=== PATIENT | female | born 1985 | race Caucasian/White ===

== ENCOUNTER 2016-07-27 15:01 | Emergency (ER) | payer OTHER ==
[2016-07-27 15:36] VITALS: BP 132/48
--- NOTE | 2016-07-27 15:58 | UC ---
Lower Extremity/Ankle HPI - HPI Summary HPI Summary: 31 y/o female c/o left dorsal swelling and pain which radiates into the plantar surface (arch) of the foot, which began 7-10 days ago. Patient states that her foot was suddenly very painful, she felt that she could no longer wear her left shoe (related to pain), when she took her shoe off, she noticed swelling on the dorsal surface around the first-third metatarsals. Pain is a constant 6/10 throbbing sensation. Increased when weight bearing, palpating the area, or dorsal flexion of the left foot. Pain radiates into the arch of the foot when weight bearing or walking. Elevation and ice slightly improve the pain. Denies temperature changes in the extremity, trauma, or past injury in that area of the foot. Pt also complaining of a "bone spur" around the first distal metatarsal area. Patient believes this developed a month ago, denies changes in activity of foot wear. 500 mg of Tylenol Q4H does not alleviate the pain. - History of Current Complaint Chief Complaint: UCLowerExtremity Stated Complaint: FOOT PAIN Time Seen by Provider: 07/27/16 15:43 Hx Obtained From: Patient Hx Last Menstrual Period: 07/25/16 ?: No Onset/Duration: Gradual Onset Severity Initially: Moderate Severity Currently: Moderate Pain Intensity: 6 - Becomes severe with palpation or movement Pain Scale Used: 0-10 Numeric Aggravating Factor(s): Standing, Ambulation Alleviating Factor(s): Rest, Ice Able to Bear Weight: Yes - Risk Factors Gout Risk Factors: Obesity DVT Risk Factors: Negative Septic Arthritis Risk Factor: Negative - Allergies/Home Medications Allergies/Adverse Reactions: Allergies Allergy/AdvReac Type Severity Reaction Status Date / Time Codeine Allergy Hives Verified 07/27/16 15:36 Penicillins Allergy Hives Verified 07/27/16 15:36 PMH/Surg Hx/FS Hx/Imm Hx Previously Healthy: Yes - HX of migraines Endocrine History Of: Denies: Diabetes, Thyroid Disease, Hyperthyroidism, Hypothyroidism, Dyslipidemia Cardiovascular History Of: Reports: Hypertension - Patient states that she takes beta patricia related to migraine prophylaxis Respiratory History Of: Denies: COPD, Asthma, Bronchitis, Pneumonia, Pulmonary Embolism GI/ History Of: Denies: Gastroesophageal Reflux, Ulcer, Gastrointestinal Bleed, Gall Bladder Disease, Kidney Stones, Diverticulitis, Renal Disease, Urosepsis Neurological History Of: Denies: TIA, CVA, Dementia, Seizures, Migraine Psychological History Of: Reports: Anxiety - Surgical History Surgical History: Yes Surgery Procedure, Year, and Place: R and L hip WITH HARDWEAR. c- section - Family History Known Family History: Positive: None, Hypertension, Other - No known FMH of skin disorder Mother 43 r/t brain aneurysm - Social History Lives: With Family Alcohol Use: None Substance Use Type: None Smoking Status (MU): Never Smoked Tobacco Have You Smoked in the Last Year: No - Immunization History Hx Tetanus, Diphtheria Vaccination: No Review of Systems Constitutional: Negative Skin: Other - Swelling left foot Eyes: Negative ENT: Negative Respiratory: Negative Cardiovascular: Negative Gastrointestinal: Negative Genitourinary: Negative Motor: Negative Neurovascular: Negative Musculoskeletal: Negative Neurological: Negative Psychological: Negative All Other Systems Reviewed And Are Negative: Yes Physical Exam Triage Information Reviewed: Yes Appearance: Well-Appearing, No Pain Distress, Obese Vital Signs: Initial Vital Signs Temp 98.2 F 07/27/16 15:32 Pulse 80 07/27/16 15:32 Resp 18 07/27/16 15:32 BP 132/48 07/27/16 15:32 Pulse Ox 99 07/27/16 15:32 Vital Signs Reviewed: Yes Eye Exam: Normal Eyes: Positive: Conjunctiva Clear ENT Exam: Normal ENT: Positive: Normal ENT inspection, Hearing grossly normal, Pharynx normal, TMs normal Dental Exam: Normal Dental: Negative: Cervical Lymphadenopathy Neck exam: Normal Neck: Positive: Supple, Nontender, No Lymphadenopathy Respiratory: Positive: Chest non-tender, Lungs clear, Normal breath sounds, No respiratory distress Cardiovascular: Positive: RRR, No Murmur, Pulses Normal Abdomen Description: Positive: Nontender, No Organomegaly, Soft Musculoskeletal Exam: Normal Musculoskeletal: Positive: Strength Intact, ROM Intact Neurological Exam: Normal Neurological: Positive: Alert Psychological Exam: Normal Skin: Positive: Other Lower Extremity Course/Dx - Differential Dx/Diagnosis Provider Diagnoses: Bunion proximal metatarsal joint. Foot pain Discharge - Discharge Plan Condition: Stable Disposition: HOME Patient Education Materials: Sai (ED) Referrals: Cosme ARANA,Mark Crockett [Doctor of Podiatric Medicine] - Additional Instructions: Shoe modification: wide, low-heeled shoes, or specially altered shoes Orthotic inserts to improve support and alignment Night splinting to improve toe alignment Stretching and/or mobilization/manipulation to maintain joint mobility Bunion pads to prevent irritation Ice applied after activity to reduce inflammation Analgesics: Ibuprofen or Tylenol Elevate the foot Follow up with podiatry
--- NOTE | 2016-07-27 16:45 | RAD ---
Indication: Left foot pain 3 views of left foot demonstrates no fracture. Mild hallux valgus deformity is noted at the first metatarsal phalangeal joint. No significant displacement is noted. IMPRESSION: Mild hallux valgus deformity of the first metatarsal phalangeal joint.
== END 2016-07-27 17:03 | disposition home or self-care (01) ==
LOC: UCCORT 15:01
DX: M21.612 Bunion of left foot (principal); E66.9 Obesity, unspecified; Z88.0 Allergy status to penicillin; Z88.5 Allergy status to narcotic agent
CPT/HCPCS: 99211; G0463

== ENCOUNTER 2016-09-06 11:54 | Emergency (ER) | payer OTHER ==
[2016-09-06 13:55] VITALS: BP 148/67
--- NOTE | 2016-09-06 14:23 | UC ---
Ear Complaint HPI - HPI Summary HPI Summary: 31 female presents with complaints of left ear pain that began 3-4 days ago. States the pain earlier in the week was in her right ear however after ibuprofen that improved. The pain then began in her left ear, waking her up in the middle of the night. She tried ibuprofen and tylenol. Last dose of Tylenol was around 11am this morning. Did not have any relief. Denies discharge, nasal congestion, cough, headache and fever/chills. - History of Current Complaint Chief Complaint: UCEar Stated Complaint: EAR PAIN Time Seen by Provider: 09/06/16 13:54 Hx Obtained From: Patient Hx Last Menstrual Period: 08/26/16 ?: No Onset/Duration: Sudden Onset Severity Initially: Mild Severity Currently: None Pain Intensity: 3 Pain Scale Used: 0-10 Numeric Aggravating Factors: Nothing Alleviating Factors: Nothing Associated Signs/Symptoms: Negative: Discharge, Hearing Loss, Foreign Body Sensation, Trauma to Ear, Swelling @, URI Symptoms - Allergies/Home Medications Allergies/Adverse Reactions: Allergies Allergy/AdvReac Type Severity Reaction Status Date / Time Codeine Allergy Hives Verified 09/06/16 13:50 Penicillins Allergy Hives Verified 09/06/16 13:50 PMH/Surg Hx/FS Hx/Imm Hx Endocrine History Of: Denies: Diabetes, Thyroid Disease, Hyperthyroidism, Hypothyroidism, Dyslipidemia Cardiovascular History Of: Denies: Hypertension, Pacemaker/ICD Respiratory History Of: Denies: COPD, Asthma, Bronchitis, Pneumonia, Pulmonary Embolism GI/ History Of: Denies: Gastroesophageal Reflux, Ulcer, Gastrointestinal Bleed, Gall Bladder Disease, Kidney Stones, Diverticulitis, Renal Disease, Urosepsis Neurological History Of: Denies: TIA, CVA, Dementia, Seizures, Migraine Psychological History Of: Reports: Anxiety - Surgical History Surgical History: Yes Surgery Procedure, Year, and Place: R and L hip WITH HARDWEAR. c- section - Family History Known Family History: Positive: None, Hypertension, Other - No known FMH of skin disorder Mother 43 r/t brain aneurysm - Social History Alcohol Use: None Substance Use Type: None Smoking Status (MU): Never Smoked Tobacco Have You Smoked in the Last Year: No - Immunization History Hx Tetanus, Diphtheria Vaccination: No Review of Systems Constitutional: Negative Skin: Negative Eyes: Negative ENT: Ear Ache Respiratory: Negative Cardiovascular: Negative Gastrointestinal: Negative Motor: Negative Neurovascular: Negative Musculoskeletal: Negative Neurological: Negative Psychological: Negative All Other Systems Reviewed And Are Negative: Yes Physical Exam Triage Information Reviewed: Yes Appearance: Well-Appearing, No Pain Distress, Well-Nourished Vital Signs: Initial Vital Signs Temp 98.1 F 09/06/16 13:51 Pulse 83 09/06/16 13:51 Resp 16 09/06/16 13:51 BP 148/67 09/06/16 13:51 Pulse Ox 98 09/06/16 13:51 Vital Signs Reviewed: Yes Eye Exam: Normal Eyes: Positive: Conjunctiva Clear ENT: Positive: Normal ENT inspection, Hearing grossly normal, Pharynx normal, TM bulging - left, TM red - no discharge, FB or cerumen noted in EAC Dental: Negative: Percussion Tenderness @, Cervical Lymphadenopathy Neck: Positive: Supple, Nontender, No Lymphadenopathy Respiratory: Positive: Chest non-tender, Lungs clear, Normal breath sounds, No respiratory distress, No accessory muscle use Cardiovascular: Positive: RRR, No Murmur, Pulses Normal, Brisk Capillary Refill Abdominal Exam: Normal Musculoskeletal Exam: Normal Neurological Exam: Normal Psychological Exam: Normal Psychological: Positive: Normal Response To Family, Age Appropriate Behavior Skin Exam: Normal Ear Complaint Course/Dx - Course Course Of Treatment: gievn antibiotic for mild otitis media of left ear, continue tylenol/ibuprofen. aware of worsening signs and symptoms to watch out for. - Differential Dx/Diagnosis Differential Diagnosis/HQI/PQRI: Otitis Externa, Otitis Media, URI Provider Diagnoses: otitis media, left Discharge - Discharge Plan Condition: Stable Disposition: HOME Prescriptions: Amoxicillin CAP* [Amoxicillin 500 MG CAP*] 500 mg PO Q12H #20 cap Patient Education Materials: Otitis Media (ED) Referrals: No Primary Care Phys,NOPCP [Primary Care Provider] - [facility] [place]] Additional Instructions: Take prescribed antibiotics until entire dose is finished, even if symptoms improve. Recommend taking probiotic pills in between antibiotic doses to replenish normal gage. Drink plenty of fluids and wash hands frequently. Continue using ibuprofen/tylenol for pain and fever. Do not submerge ear under water. If symptoms worsen or do not improve, or new symptoms develop please seek medical attention.
== END 2016-09-06 14:33 | disposition home or self-care (01) ==
LOC: UCCORT 11:54
DX: H66.92 Otitis media, unspecified, left ear (principal); F41.9 Anxiety disorder, unspecified; Z88.5 Allergy status to narcotic agent; Z88.0 Allergy status to penicillin
CPT/HCPCS: 99212; G0463

== ENCOUNTER 2016-10-10 21:36 | Emergency (ER) | payer OTHER ==
[2016-10-10 21:55] VITALS: BP 147/93
[2016-10-10] MEDS ORDERED: Amoxicillin/Clavulanate TAB* 875 MG PO ONE (22:44)
[2016-10-10] MEDS ORDERED: HYDROcodone/ACETAMIN 5-325 MG* 1 TAB PO ONE (22:47)
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
== END 2016-10-10 23:02 | disposition home or self-care (01) ==
LOC: UCCORT 21:36
DX: K04.7 Periapical abscess without sinus (principal); F41.9 Anxiety disorder, unspecified; E66.9 Obesity, unspecified; Z88.5 Allergy status to narcotic agent; Z88.0 Allergy status to penicillin
CPT/HCPCS: 99212; A9270-GY; G0463

== ENCOUNTER 2017-03-09 16:28 | Emergency (ER) | payer OTHER ==
[2017-03-09 16:48] VITALS: BP 143/83
--- NOTE | 2017-03-09 16:50 | UC ---
Lower Extremity/Ankle HPI - HPI Summary HPI Summary: 32 YEAR OLD FEMALE PRESENTS WITH RIGHT BIG TOE INGROWN NAIL. - History of Current Complaint Chief Complaint: UCLowerExtremity Stated Complaint: INGROWN TOENAIL Time Seen by Provider: 03/09/17 16:48 Hx Obtained From: Patient Hx Last Menstrual Period: 03/05/17 Onset/Duration: Sudden Onset Severity Initially: Moderate Severity Currently: Moderate Pain Scale Used: 0-10 Numeric - 7 Aggravating Factor(s): Standing, Ambulation Alleviating Factor(s): Rest, Elevation - Allergies/Home Medications Allergies/Adverse Reactions: Allergies Allergy/AdvReac Type Severity Reaction Status Date / Time No Known Allergies Allergy Verified 03/09/17 16:48 Home Medications: Home Medications ALPRAZolam TAB* [Xanax TAB*] 0.25 mg PO Q8H PRN 03/09/17 [History Confirmed 08/21] buPROPion TAB* [Wellbutrin TAB*] 150 mg PO DAILY 03/09/17 [History Confirmed 08/21] PMH/Surg Hx/FS Hx/Imm Hx Previously Healthy: Yes - Surgical History Surgical History: Yes Surgery Procedure, Year, and Place: R and L hip WITH HARDWEAR. c- section - Family History Known Family History: Positive: None, Hypertension, Other - No known FMH of skin disorder Mother 43 r/t brain aneurysm - Social History Alcohol Use: Occasionally Substance Use Type: None Smoking Status (MU): Never Smoked Tobacco Have You Smoked in the Last Year: No - Immunization History Most Recent Influenza Vaccination: no 2016 Hx Tetanus, Diphtheria Vaccination: No Review of Systems Constitutional: Negative Skin: Other - RIGHT BIG TOE INGROWN NAIL Eyes: Negative ENT: Negative Respiratory: Negative Cardiovascular: Negative Gastrointestinal: Negative Genitourinary: Negative Motor: Negative Neurovascular: Negative Musculoskeletal: Negative Neurological: Negative Psychological: Negative All Other Systems Reviewed And Are Negative: Yes Physical Exam Triage Information Reviewed: Yes Vital Signs: Initial Vital Signs Temp 36.6 C 03/09/17 16:44 Pulse 102 03/09/17 16:44 Resp 20 03/09/17 16:44 BP 143/83 03/09/17 16:44 Pulse Ox 100 03/09/17 16:44 Eye Exam: Normal ENT Exam: Normal Dental Exam: Normal Neck exam: Normal Neck: Positive: 1 Respiratory Exam: Normal Cardiovascular Exam: Normal Abdominal Exam: Normal Musculoskeletal Exam: Normal Neurological Exam: Normal Psychological Exam: Normal Skin: Positive: Other - RIGHT BIG TOE INGROWN NAIL Procedures - Procedure Summary Procedure Summary: RIGHT INGROWN NAIL REMOVAL - RIGHT BIG TOE MEDIAL PARTIAL NAIL AVULSION, LIDOCAINE 1% 4 ML BLOCK, STERILE DRESSING, ABX, STERILE TECHNIQUE , AND NO COMPLICATIONS. Lower Extremity Course/Dx - Differential Dx/Diagnosis Provider Diagnoses: RIGHT BIG TOE INGROWN NAIL Discharge - Discharge Plan Condition: Stable Disposition: HOME Prescriptions: DOXYcycline CAP(*) [DOXYcycline 100MG CAP(*)] 100 mg PO BID #14 cap Patient Education Materials: Ingrown Nail (ED) Referrals: No Primary Care Phys,NOPCP [Medical Doctor] -
[2017-03-09] MEDS ORDERED: Lidocaine 1% MPF* 2 ML VIAL INJ ONE ×2 (16:58)
--- NOTE | 2017-03-09 21:41 | UC ---
Progress - Progress Note Progress Note: no change. patient on doxycycline.
--- NOTE | 2017-03-12 07:36 | UC ---
Progress - Progress Note Progress Note: no change. patient on doxycycline.
== END 2017-03-09 17:42 | disposition home or self-care (01) ==
LOC: UCCORT 16:28
DX: L60.0 Ingrowing nail (principal); B95.61 Methicillin susceptible Staphylococcus aureus infection as the cause of diseases classified elsewhere
CPT/HCPCS: 11730; 87070; 87077; 87186; 87205; 87640; 87641; 99212; G0463

== ENCOUNTER 2017-03-11 15:56 | Emergency (ER) | payer OTHER ==
[2017-03-11 16:54] VITALS: BP 133/73
--- NOTE | 2017-03-11 17:08 | UC ---
Skin Complaint HPI - HPI Summary HPI Summary: 32 year old female. Having toe pain . seen here 03/09/17 for ingrown right toenail, had partial nail removed, on Doxycycline bid, post op shoe --pt reports no improvement, very painful still and with some discharge still. no fever. She was advised to f/u here today for re-eval [ End ] - History of Current Complaint Chief Complaint: UCSkin Time Seen by Provider: 03/11/17 16:23 Stated Complaint: INFECTED INGROWN TOE NAIL Hx Obtained From: Patient Hx Last Menstrual Period: 03/05/17 Onset/Duration: Gradual Onset Onset Severity: Moderate Aggravating Factor(s): Nothing Alleviating Factor(s): Nothing Associated Signs & Symptoms: Positive: Negative - Allergy/Home Medications Allergies/Adverse Reactions: Allergies Allergy/AdvReac Type Severity Reaction Status Date / Time No Known Allergies Allergy Verified 03/11/17 16:54 Home Medications: Home Medications Acetaminophen [Acetaminophen Extra Stren] 1,000 mg PO ONCE 03/11/17 [History Confirmed 03/11/17] Review of Systems Skin: Other - toe redness All Other Systems Reviewed And Are Negative: Yes PMH/Surg Hx/FS Hx/Imm Hx Previously Healthy: Yes - Surgical History Surgical History: Yes Surgery Procedure, Year, and Place: R and L hip WITH HARDWEAR. c- section - Family History Known Family History: Positive: None, Hypertension, Other - No known FMH of skin disorder Mother 43 r/t brain aneurysm - Social History Lives: With Family Alcohol Use: Occasionally Substance Use Type: None Smoking Status (MU): Never Smoked Tobacco Have You Smoked in the Last Year: No - Immunization History Most Recent Influenza Vaccination: none Hx Tetanus, Diphtheria Vaccination: No Physical Exam Triage Information Reviewed: Yes Appearance: Well-Appearing, Pain Distress - mild Vital Signs: Initial Vital Signs Temp 98.8 F 03/11/17 16:49 Pulse 112 03/11/17 16:49 Resp 18 03/11/17 16:49 BP 133/73 03/11/17 16:49 Pulse Ox 99 03/11/17 16:49 Vital Signs Reviewed: Yes Respiratory Exam: Normal Cardiovascular Exam: Normal Musculoskeletal Exam: Normal Neurological Exam: Normal Psychological Exam: Normal Skin: Positive: Other - large toe left with medial 1st MTP with partially removed nail, some mild erythema at the base of the toe. FROM of the toe. No streaking. No pulpitis. Brisk peripheral pulses. Course/Dx - Course Course Of Treatment: Doxy sensitive. start indocin for pain relief. no other NSAIDs. no changes otherwise. discussed SE of NSAIDs - Diagnoses Provider Diagnoses: Ingrown toe nail infection Discharge - Discharge Plan Condition: Good Disposition: HOME Prescriptions: Indomethacin CAP* [Indocin CAP*] 50 mg PO TID PRN #30 cap PRN Reason: Pain Patient Education Materials: Ingrown Nail (ED) Referrals: TIFFANY Bloom [Primary Care Provider] - 4 Days Additional Instructions: Your antibiotic needs to be finished. You may take the indomethacin as needed for pain. You may also use tylenol as well. Please do not use motrin or Aleve or Excedrin .
== END 2017-03-11 17:18 | disposition home or self-care (01) ==
LOC: UCCORT 15:56
DX: L60.0 Ingrowing nail (principal)
CPT/HCPCS: 99212; G0463